=== PATIENT | female | born 1955 | race African-American/Black ===

== ENCOUNTER 2022-07-01 12:14 | Outpatient (CLI) | payer MEDICARE, MEDICAID | END 2022-07-01 12:15 | disposition home or self-care (01) | LOC: CSHCP 12:14 | PROVIDERS: ATTEND Internal Medicine Cardiovascular Disease | DX: R06.02 Shortness of breath (principal); R94.2 Abnormal results of pulmonary function studies | CPT/HCPCS: 94010; 94726; 94729; 94760 ==